=== PATIENT | female | born 1950 | race Caucasian/White ===

== ENCOUNTER 2024-03-06 07:22 | Day surgery (SDC) | payer MEDICARE, SELFPAY ==
--- NOTE | 2024-02-28 09:10 | EKG12_ITS ---
Test Reason : PRE OP Blood Pressure : / mmHG Vent. Rate : 085 BPM Atrial Rate : 085 BPM P-R Int : 140 ms QRS Dur : 088 ms QT Int : 384 ms P-R-T Axes : 033 040 027 degrees QTc Int : 456 ms Normal sinus rhythm Nonspecific ST and T wave abnormality Abnormal ECG Confirmed by MICKIE PATTERSON, SUZANNE ([id number]), editor news KERMIT NASSAR ([id number]) on 03/03/2024 8:34:15 AM Referred By: Dominga Sinclair Confirmed By:PAULINO CORADO MD
[2024-03-03 12:45] LABS: Anion Gap 5 (5-15); BUN 24 mg/dL (7-18); BUN/Creat Ratio 26.7 RATIO (10-20); Calcium,Total 9.2 mg/dL (8.5-10.1); Chloride 104 mmol/L (98-107); EST Glomerular Filtration Rate 65 mL/min (>60); Est Glom Filt Rate - Afr Amer 79 mL/min (>60); Glucose 103 mg/dL (74-106); Potassium 4.8 mmol/L (3.5-5.1); Sodium Level 137 mmol/L (136-145)
--- NOTE | 2024-03-06 07:44 | PCM.PRE.AN2 ---
ASA Classification* ASA Classification ASA Classification: 3 Assessment & Plan Anesthesia* Anesthesia Assessment Anesthesia Assessment: Discussed sedation and/or anesthesia options, risks, benefits, and alternatives with patient/parents/legal guardian/POA. Questions invited. The patient/parents/legal guardian/POA seems to understand and agrees to proceed with anesthesia plan. Reviewed the physical assessment, medical history, allergy history and patient home medications list prior to surgery/procedure/anesthetic and documented any changes. Performed airway and anesthesia risk assessments. Anesthesia Type Anesthesia Type: MAC (see written pre-anesthesia record for full assessment) Anesthesia Focused Assessment* Airway Assessment Mouth opens: >3 cm Mallampati Score: II Focused Labs Anesthesia Preop lab: CBC CHEMISTRY Potassium 4.8 mmol/L (3.5-5.1) 02/28/24 08:56 Sodium 137 mmol/L (136-145) 02/28/24 08:56 BUN 24 mg/dL (7-18) H 02/28/24 08:56 Creatinine 0.90 mg/dL (0.55-1.02) 02/28/24 08:56 Glucose 103 mg/dL (74-106) 02/28/24 08:56 TSH 2.20 uIU/mL (0.358-3.74) 02/28/24 08:56 COAG Pre-Assessment Diagnosis/Proposed Procedure Planned Operative Procedure(s): Cysto,Biopsy AND Fulguration Anesthesia History 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 When Was Last Pacemaker Check QUESTION #4 FULL TEXT: You/Your Family Experience fever (hyperthermia) with Anesthesia Last Oral Intake Last Oral intake: Last Oral Intake NPO since Meds taken in AM with sips of water? 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 special education teacher Female Yes 02/27/24 13:16 HX of Motion Sickness Yes 02/27/24 13:16 HX of N/V After Surgery No 02/27/24 13:16 Non-Smoker Yes 02/27/24 13:16 Duration of Surgery greater No 02/27/24 13:16 than 60 minutes Number of Risk Factors 3 02/27/24 13:16 PONV Score Moderate Risk 02/27/24 13:16 Respiratory Assessment Respiratory Assessment - inclusion special education teacher: Respiratory Tract Infection Hx - inclusion special education teacher Hx Respiratory Tract Infection No 02/27/24 13:16 STOP Sleep Apnea STOP Sleep Apnea - inclusion special education teacher: STOP Sleep Apnea - inclusion special education teacher Hx Hypertension No 02/27/24 13:16 Hx Sleep Apnea No 02/27/24 13:16 CPAP BIPAP Do you snore loudly (louder No 02/27/24 13:16 than talking or can be heard Do you often feel tired/ No 02/27/24 13:16 fatigued/ sleepy during daytime? Has anyone observed you stop No 02/27/24 13:16 breathing during sleep? STOP Results Negative 02/27/24 13:16 QUESTION #5 FULL TEXT : Do you snore loudly (louder than talking or can be heard through closed doors)? 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 Specify any problems Hx of Preganancy in last 3 N/A 02/27/24 13:16 Months Nurse Filling Out Transfusion NBUCHER 02/27/24 13:16 & Questions: Date: 02/27/24 02/27/24 13:16 Time: 13:18 02/27/24 13:16 Patient unable to answer at this time (ie. confused, unrespo /Reproduction History /Reproductive History - inclusion special education teacher: /Reproductive Hx- inclusion special education teacher Hx Now No 02/27/24 13:16 Gestational Age (in weeks): EDC: Hx Hx Para Hx Section SAB No 02/27/24 13:16 Active Medications Active Medications: Current Medications Generic Name Dose Route Start Last Admin Trade Name Freq PRN Reason Stop Dose Admin Cefazolin Sodium 2 gm/ Sodium 110 mls @ 150 mls/hr 03/06/24 09:40 Chloride IV 03/06/24 10:23 PREOP ONE Lactated Ringer's 1,000 mls @ 15 mls/hr 03/06/24 07:45 IV .Q48H MAKAYLA PFSH Medical History Wears hearing aid Loss of hearing Wears contact lenses Wears glasses Depression Thyroid disease Bladder disease High cholesterol Arthritis Non-smoker Hypertension History of closed shoulder dislocation Home Medications ?Medication ?Instructions ?Recorded ?Last Taken ?Type bupropion HCl 150 mg 24 hr tablet, 150 mg PO DAILY 02/27/24 Unknown History extended release celecoxib 100 mg capsule 100 mg PO BID 02/27/24 Unknown History cholecalciferol (vitamin D3) 125 125 mcg PO DAILY 02/27/24 Unknown History mcg (5,000 unit) tablet (Vitamin D3) coenzyme Q10 100 mg capsule (Co 100 mg PO DAILY 02/27/24 Unknown History Q-10) fesoterodine 4 mg tablet,extended 4 mg PO DAILY 02/27/24 Unknown History release 24 hr krill oil 500 mg capsule 300 mg PO DAILY 02/27/24 Unknown History levothyroxine 88 mcg tablet 88 mcg PO DAILY 02/27/24 Unknown History magnesium oxide 250 mg PO DAILY 02/27/24 Unknown History multivitamin (Daily Multi-Vitamin 1 tab PO DAILY 02/27/24 Unknown History tablet) psyllium husk 0.4 gram capsule 0.4 g PO DAILY 02/27/24 Unknown History (Daily Fiber) rosuvastatin 20 mg tablet 20 mg PO DAILY 02/27/24 Unknown History vibegron 75 mg tablet (Gemtesa) 75 mg PO DAILY 02/27/24 Unknown History Allergy/AdvReac Type Severity Reaction Status Date / Time No Known Allergies Allergy Verified 03/06/24 07:40 Surgical History History of D&C History of dental surgery History of cholecystectomy History of hysterectomy Social History Smoking Status: Never smoker Review of Systems (Anesthesia) ROS Narrative System reviewed and no additional complaints, except as documented.
[2024-03-06 08:05] VITALS: BP 146/72; PULSE 91; RESP 18; TEMP 36.2; O2SAT 98; BMI 43.4
[2024-03-06 08:10] LABS: Hemoglobin 13.2 g/dL (12.0-15.0); Mean Corpuscular Hgb 29.1 pg (27.0-32.0); Mean Corpuscular Volume 88.1 fL (81-99); Mean Platelet Vol. 9.4 fl (6.2-12.0); Platelet Count 272 K/mm3 (150-450); RBC Distribution Width CV 13.5 % (11.6-14.6); RBC Distribution Width SD 43.9 fl (35.1-43.9); Red Blood Count 4.54 M/mm3 (4.2-5.4); White Blood Count 9.1 K/mm3 (4.4-11.0)
[2024-03-06] MEDS: Lactated Ringers 1,000 ML 15 ML IV (08:10)
--- NOTE | 2024-03-06 08:13 | PCM.OPRPT ---
Report of Operation Date of Procedure: 03/06/24 Pre-Operative Diagnosis: Bladder mucosal lesion Post-Operative Diagnosis: Same Surgery/Procedure Performed:: Cystoscopy, bladder biopsy with fulguration Type of Anesthesia: MAC Specimen's removed: Bladder biopsy Description of Procedure: The patient is a 73-year-old female found to have an ulceration of the right lateral bladder wall on cystoscopic evaluation in the office as part of the workup for urgency, frequency and leakage. She presents for biopsy and fulguration of her lesion. Informed consent has been obtained. She was taken the operating room and placed on the operating. Anesthesia monitored the head, neck, airway, IV access and vital signs throughout the case. Once anesthesia was appropriately administered, she was placed into dorsolithotomy position and was prepped and draped in usual sterile fashion. The cystoscope with 30 degree lens was inserted through the urethra under direct visualization into the urinary bladder. The bladder mucosa was once again visualized revealing the lesion in question on the right lateral bladder wall. Is approximately 1.5 cm in diameter. The beginnings of a second ulceration approximately 3 to 4 mm in size on the patient's left lateral bladder wall was also identified. Flexible biopsy forceps were used to take a sample of the tissue of the right lateral bladder wall. The area was fulgurated for hemostatic control and tissue treatment. At this time her bladder was emptied and the cystoscope was removed. She was awakened and taken to the recovery room in good condition. There were no complications during this procedure. Grafts/Implants Used: None Complications None Admit VTE Documentation VTE Present on Admission: Yes VTE Mechan Device Prophylaxis: SCD's VTE Pharm Prophylaxis ordered?: No
[2024-03-06] MEDS: Cefazolin 2 GM in 0.9% Normal Saline (100mL Bag) 100 ML IV (08:14)
--- NOTE | 2024-03-06 08:20 | BLA_PTH ---
PATIENT: REKHA ANN [place] [facility] [place][id number] AGE/SX: 73/F ROOM: RE03/06/[address]: Dr. Dominga Sicnlair MD : [id number] BED: DIS: 03/06/2024 SPEC #: [id number] RECD: 03/06/24 09:45 STATUS: KUSH BRIONES #: [id number] ARNIE: 03/06/24 08:[address]: Dominga Sinclair DEPT: SURGICAL PATHOLOGY RECD BY: Courtney Cosby Tissues: Urinary bladder, NOS Procedures: Surgery Specimen Level IV HEADER OPERATION: Biopsy and fulguration PRE-OP DIAGNOSIS: Lesion of bladder, urge of incontinence, overactive bladder TISSUE SUBMITTED: Bladder biopsy MICROSCOPIC DIAGNOSIS Bladder, biopsy: Fragments of urothelial mucosa with moderate to marked acute and chronic inflammation. Reactive epithelial changes. Negative for malignancy. SJ/mr 03/07/2024 MICROSCOPIC DESCRIPTION Slides are reviewed. GROSS DESCRIPTION Received in fixative is one container labeled with the patient's name and designated Bladder biopsy. The specimen consists of three irregular fragments of light velasco soft tissue that in aggregate measure 0.4 x 0.2 x 0.1 cm. The specimen is totally submitted in one cassette. 03/06/2024 TC:2 CPT:87284
[2024-03-06 08:45] VITALS: BP 146/72; BP 94/71; PULSE 84; RESP 15; TEMP 36.2; O2SAT 100
[2024-03-06 08:50] VITALS: BP 119/78; BP 146/72; PULSE 79; RESP 16; O2SAT 98
[2024-03-06 08:55] VITALS: BP 124/78; BP 146/72; PULSE 83; RESP 16; TEMP 36.2; O2SAT 94
--- NOTE | 2024-03-06 08:55 | DCINST_ITS ---
Discharge Instructions Diet Discharge Diet: No restrictions Activity Discharge Activity: Return to Normal Activity Dressing / Incision Call your doctor if you observe: Fever of 101 or Higher, Inability to urinate and Inability to have a bowel movement Follow Up Care Please Follow Up With: Dominga Sinclair MD When: The office will call her to make follow-up arrangements. Test Results: Test results from this visit will be discussed in further detail at your follow- up appointment, if applicable. Discharge Plan Admission Attending Provider: Dominga Sinclair Primary Care Provider: JARED URBAN Instructions Print Language: Citizen Of [place] Discharge Orders/Prescriptions Prescriptions: New oxycodone-acetaminophen [Percocet] 5-325 mg tablet 1 tab PO Q8H PRN (Reason: pain) 3 Days Qty: 10 0RF phenazopyridine [Pyridium] 200 mg tablet 200 mg PO TID PRN PRN (Reason: Bladder Spasms) 7 Days Qty: 30 3RF Continued bupropion HCl 150 mg tablet extended release 24 hr 150 mg PO DAILY levothyroxine 88 mcg tablet 88 mcg PO DAILY rosuvastatin 20 mg tablet 20 mg PO DAILY fesoterodine 4 mg tablet extended release 24 hr 4 mg PO DAILY celecoxib 100 mg capsule 100 mg PO BID Gemtesa 75 mg tablet 75 mg PO DAILY coenzyme Q10 [Co Q-10] 100 mg capsule 100 mg PO DAILY psyllium husk [Daily Fiber] 0.4 gram capsule 0.4 g PO DAILY krill oil 500 mg capsule 300 mg PO DAILY magnesium oxide 250 mg magnesium tablet 250 mg PO DAILY multivitamin [Daily Multi-Vitamin] Tablet 1 tab PO DAILY cholecalciferol (vitamin D3) [Vitamin D3] 125 mcg (5,000 unit) tablet 125 mcg PO DAILY Other Ambulatory Orders: 12 Lead EKG (Routine) Timeframe: 20240228 Location: None Selected Ordered By: Dr. Henrique Mcdaniel Disposition Disposition (needs filled in before D/C Order can be placed): Home, Self Care
[2024-03-06 09:10] VITALS: BP 94/71; PULSE 77; RESP 16; TEMP 36.2; O2SAT 95
--- NOTE | 2024-03-06 09:10 | POSTOPAN2_ITS ---
Anesthesia Postop Eval I Sum Postop Eval Completion status Anesthesia document: Postop Eval 1 completed: Yes Anesthesia Postop Eval I Summary Anesthesia Postop Eval I Summary: Anesthesia Postop Eval I: Assessment Summary Airway patent Yes 03/06/24 09:10 VIROLOGY TEACHER.MDOT Spontaneous unlabored Yes 03/06/24 09:10 VIROLOGY TEACHER.MDOT respirations Mental status Awake,Calm 03/06/24 09:10 VIROLOGY TEACHER.MDOT nausea No 03/06/24 09:10 VIROLOGY TEACHER.MDOT Vomiting No 03/06/24 09:10 VIROLOGY TEACHER.MDOT Anesthesia Postop Eval I: Fluid Summary Crystalloid volume administer 500 03/06/24 09:10 VIROLOGY TEACHER.MDOT (ml) Colloids volume administered ( ml) Blood Product volume administered (ml) Total IV fluid infused 500 03/06/24 09:10 VIROLOGY TEACHER.MDOT Anesthesia Postop Eval I: Summary Notes Anesthesia Complication No 03/06/24 09:10 VIROLOGY TEACHER.MDOT Anesthesia Complication Comment: Post-operative progress note Anesthesia: Postop Eval II Evaluation Mental status: Awake and Calm Pain Level: 0 nausea: No Vomiting: No Complications Anesthesia Complication: No
--- NOTE | 2024-03-06 09:10 | PCM.POST.ANE ---
Anesthesia: Postop Eval I Current Vital Signs Temperature: 97.1 F Pulse Rate: 77 Blood Pressure: 94/71 Respiratory Rate: 16 Pulse Ox: 95 Oxygen Delivery Method: Venturi Mask Oxygen Flow Rate (L/min): 4 Assessment Airway patent: Yes Spontaneous unlabored respirations: Yes Mental status: Awake and Calm nausea: No Vomiting: No Anesthesia Complication: No Fluid Hydration Crystalloid volume administer (ml): 500 Total IV fluid infused: 500 Progress Note Anesthesia document: Postop Eval 1 completed: Yes
--- NOTE | 2024-03-06 09:10 | PCM.POSTANE2 ---
Anesthesia Postop Eval I Sum Postop Eval Completion status Anesthesia document: Postop Eval 1 completed: Yes Anesthesia Postop Eval I Summary Anesthesia Postop Eval I Summary: Anesthesia Postop Eval I: Assessment Summary Airway patent Yes 03/06/24 09:10 SALES PLANNING MANAGER.MDOT Spontaneous unlabored Yes 03/06/24 09:10 SALES PLANNING MANAGER.MDOT respirations Mental status Awake,Calm 03/06/24 09:10 SALES PLANNING MANAGER.MDOT nausea No 03/06/24 09:10 SALES PLANNING MANAGER.MDOT Vomiting No 03/06/24 09:10 SALES PLANNING MANAGER.MDOT Anesthesia Postop Eval I: Fluid Summary Crystalloid volume administer 500 03/06/24 09:10 SALES PLANNING MANAGER.MDOT (ml) Colloids volume administered ( ml) Blood Product volume administered (ml) Total IV fluid infused 500 03/06/24 09:10 SALES PLANNING MANAGER.MDOT Anesthesia Postop Eval I: Summary Notes Anesthesia Complication No 03/06/24 09:10 SALES PLANNING MANAGER.MDOT Anesthesia Complication Comment: Post-operative progress note Anesthesia: Postop Eval II Evaluation Mental status: Awake and Calm Pain Level: 0 nausea: No Vomiting: No Complications Anesthesia Complication: No
--- NOTE | 2024-03-06 09:40 | SUR.PHASEII ---
pt and just waiting to talk to Dr Sinclair post op. Dr in procedure now. No pain, no nausea. Rev discharge instructions.
[2024-03-06 10:13] VITALS: BP 146/72
== END 2024-03-06 10:18 | disposition home or self-care (01) ==
LOC: SDC 07:26 → AC 07:28
PROVIDERS: Anesthesiology; Referring Provider Urology; Visit Provider Urology
PROC: 0TBB8ZX Excision of Bladder, Via Natural or Artificial Opening Endoscopic, Diagnostic (ICD-10-PCS; CPT 52204; principal; 2024-03-06 08:10)
DX: N32.89 Other specified disorders of bladder (principal); N32.81 Overactive bladder; N39.41 Urge incontinence; I10 Essential (primary) hypertension; E78.00 Pure hypercholesterolemia, unspecified; E07.9 Disorder of thyroid, unspecified; F32.A Depression, unspecified; R35.1 Nocturia; Z79.890 Hormone replacement therapy; Z79.899 Other long term (current) drug therapy
CPT/HCPCS: 52204; 00910; 36415; 80048; 84443; 85027; 88305; 93005; J7120